=== PATIENT | female | born 1980 | race Caucasian/White ===

== ENCOUNTER 2018-02-27 16:57 | Inpatient (IN) | payer MEDICAID, OTHER ==
[~2018-02-27] VITALS: Ht 165.1 cm; Wt 71.5 kg
[2018-02-27 17:51] LABS: BASOPHILS # (AUTO) 0.03 x10^3/uL (0-0.1); BASOPHILS % (AUTO) 0 % (0-1); EOSINOPHILS # (AUTO) 0.05 x10^3/uL (0-0.4); EOSINOPHILS % (AUTO) 1 % (1-7); LYMPHOCYTES # (AUTO) 2.12 x10^3/uL (1-3.4); LYMPHOCYTES % (AUTO) 30 % (22-44); MD NO; MEAN CORPUSCULAR HEMOGLOBIN 29.9 pg (27.0-34.8); MEAN CORPUSCULAR HGB CONC 34.3 g/dL (32.4-35.8); MEAN CORPUSCULAR VOLUME 87.4 fL (80-100); MEAN PLATELET VOLUME 7.6 fL (7.4-10.4); MONOCYTES # (AUTO) 0.39 x10^3/uL (0.2-0.8); MONOCYTES % (AUTO) 5 % (2-9); NEUTROPHILS # (AUTO) 4.54 x10^3/uL (1.8-6.8); NEUTROPHILS % (AUTO) 64 % (42-75); PLATELET COUNT 271 x10^3/uL (130-400); RED CELL DISTRIBUTION WIDTH 13.6 % (9.6-15.2)
[2018-02-27 17:59] LABS: ALBUMIN 3.8 g/dL (3.4-5.0); ANION GAP 8 mmol/L (5-15); CALCIUM 8.2 mg/dL (8.5-10.1); CHLORIDE 109 mmol/L (98-107); CREATININE 0.67 mg/dL (0.55-1.02)
[2018-02-27 19:26] LABS: INTERNATIONAL NORMALIZED RATIO 2.1 (0.93-1.1); PROTHROMBIN TIME 21.6 Seconds (9.6-11.5)
[2018-02-27] MEDS ORDERED: POTASSIUM CHLORIDE 20 MEQ TAB.ER.PRT ONE (19:58)
[2018-02-27] MEDS ORDERED: POTASSIUM CHLORIDE 20 MEQ TAB.ER.PRT PO ONE (20:00)
[2018-02-27] MEDS ORDERED: POTASSIUM CHLORIDE 10% 40 MEQ/30 ML UDC PO ONE (20:00)
[2018-02-27] MEDS ORDERED: FURO20TA3 PO (20:35)
[2018-02-27] MEDS ORDERED: MACI10TA PO (20:35)
[2018-02-27] MEDS ORDERED: DIGO125T PO (20:35)
[2018-02-27] MEDS ORDERED: WARF3TAB52 PO (20:35)
[2018-02-27] MEDS ORDERED: POTA20TA14 PO (20:35)
[2018-02-27] MEDS ORDERED: TADA20TA33 PO ×2 (20:35)
[2018-02-27] MEDS ORDERED: SELE PO (20:35)
[2018-02-27 20:36] LABS: TROPONIN I < 0.015 ng/mL (0.000-0.045)
[2018-02-27] MEDS ORDERED: ASPIRIN 325 MG TABLET ONE (21:27)
[2018-02-27] MEDS ORDERED: ASPIRIN 325 MG TABLET PO ONE (21:30)
[2018-02-27 22:41] VITALS: BP 94/59
[2018-02-27] MEDS ORDERED: WARF4TAB65 PO (23:24)
[2018-02-27] MEDS ORDERED: hydrALAzine 20 MG/ML, 1ML IVPush PRN (23:30)
[2018-02-27] MEDS ORDERED: ACETAMINOPHEN 325 MG TABLET PO PRN (23:30)
[2018-02-28] MEDS ORDERED: SUMATRIPTAN 50 MG TABLET PO PRN
[2018-02-28 00:49] LABS: TROPONIN I < 0.015 ng/mL (0.000-0.045)
[2018-02-28 00:50] VITALS: BP 91/50
[2018-02-28] MEDS ORDERED: FUROSEMIDE 20 MG TABLET PO SCH (01:00)
[2018-02-28 06:25] LABS: ANION GAP 8 mmol/L (5-15); CALCIUM 7.9 mg/dL (8.5-10.1); CHLORIDE 112 mmol/L (98-107)
[2018-02-28 06:31] LABS: CREATININE 0.67 mg/dL (0.55-1.02); TROPONIN I < 0.015 ng/mL (0.000-0.045)
[2018-02-28 07:04] VITALS: BP 98/53
[2018-02-28] MEDS ORDERED: SELEXIPAG HOMEMEDPO SCH (09:00)
[2018-02-28] MEDS ORDERED: DIGOXIN 0.125 MG TABLET PO SCH (09:00)
[2018-02-28] MEDS ORDERED: TADALAFIL 20 MG HOMEMEDPO SCH (09:00)
[2018-02-28] MEDS ORDERED: MACITENTAN 10 MG HOMEMEDPO SCH (09:00)
[2018-02-28] MEDS: POTASSIUM CHLORIDE 20 MEQ TAB.ER.PRT PO SCH ×2 (10:35→16:45)
[2018-02-28] MEDS ORDERED: WARFARIN 2 MG TABLET PO-COUM SCH (18:00)
== END 2018-02-28 19:05 | disposition home or self-care (01) | DRG 103 ==
LOC: ED 19:15 → EDIP 21:18 → 4EST 22:30
PROVIDERS: ADMIT Internal Medicine; ATTEND Internal Medicine
DX: G44.40 Drug-induced headache, not elsewhere classified, not intractable (principal); D68.9 Coagulation defect, unspecified; I24.9 Acute ischemic heart disease, unspecified; I27.0 Primary pulmonary hypertension; E87.6 Hypokalemia; T45.515A Adverse effect of anticoagulants, initial encounter; T50.995A Adverse effect of other drugs, medicaments and biological substances, initial encounter; Y92.89 Other specified places as the place of occurrence of the external cause; Z90.49 Acquired absence of other specified parts of digestive tract; Z83.3 Family history of diabetes mellitus; Z87.891 Personal history of nicotine dependence; Z82.49 Family history of ischemic heart disease and other diseases of the circulatory system
CPT/HCPCS: 36415; 70450; 71045; 78452; 80048; 80162; 82040; 83735; 84484; 85025; 85610; 93005; 93017; 99285; G0378; A9502; C9898

== ENCOUNTER 2018-05-23 18:47 | Emergency (ER) | payer MEDICAID ==
[~2018-05-23] VITALS: Ht 165.1 cm; Wt 75.9 kg
[~2018-05-23 18:47] MED LIST: DIGO125T PO; FURO20TA3 PO; MACI10TA PO; POTA20TA14 PO; SELE PO; TADA20TA33 PO; WARF3TAB52 PO; WARF4TAB65 PO
[2018-05-23 19:41] LABS: BASOPHILS # (AUTO) 0.04 x10^3/uL (0-0.1); BASOPHILS % (AUTO) 1 % (0-1); EOSINOPHILS # (AUTO) 0.07 x10^3/uL (0-0.4); EOSINOPHILS % (AUTO) 1 % (1-7); LYMPHOCYTES # (AUTO) 2.21 x10^3/uL (1-3.4); LYMPHOCYTES % (AUTO) 32 % (22-44); MD NO; MEAN CORPUSCULAR HEMOGLOBIN 29.4 pg (27.0-34.8); MEAN CORPUSCULAR HGB CONC 33.9 g/dL (32.4-35.8); MEAN CORPUSCULAR VOLUME 86.8 fL (80-100); MEAN PLATELET VOLUME 7.8 fL (7.4-10.4); MONOCYTES # (AUTO) 0.46 x10^3/uL (0.2-0.8); MONOCYTES % (AUTO) 7 % (2-9); NEUTROPHILS # (AUTO) 4.09 x10^3/uL (1.8-6.8); NEUTROPHILS % (AUTO) 60 % (42-75); PLATELET COUNT 219 x10^3/uL (130-400); RED BLOOD COUNT 4.72 x10^6/uL (3.82-5.3); RED CELL DISTRIBUTION WIDTH 13.9 % (9.6-15.2)
--- NOTE | 2018-05-23 19:45 | NUR ---
PT TO ROOM FROM LOBBY
[2018-05-23 19:51] LABS: ANION GAP 4 mmol/L (5-15); CALCIUM 8.3 mg/dL (8.5-10.1); CHLORIDE 112 mmol/L (98-107)
[2018-05-23 19:57] LABS: ALANINE AMINOTRANSFERASE 20 U/L (12-78); ALKALINE PHOSPHATASE 63 U/L (45-117); BILIRUBIN,TOTAL 0.5 mg/dL (0.2-1.0); CREATININE 0.72 mg/dL (0.55-1.02); FREE T4 (FREE THYROXINE) 0.83 ng/dL (0.76-1.46); TOTAL PROTEIN 7.2 g/dL (6.4-8.2)
--- NOTE | 2018-05-23 20:35 | NUR ---
PT PRESENTS TO ED WITH C/O HEADACHES FOR OVER 3 MONTHS, ALSO "BUMPS" FELT ON SCALP X 2 MONTHS. NO RASH OR BUMPS NOTED TO SCALP. NO EGGS/INSECTS VISUALIZED ON SCALP OR IN HAIR. PT A&O, RESPS EVEN AND UNLABORED. BP AND SPO2 MONITORS IN PLACE. EDPA AT BEDSIDE FOR ASSESSMENT.
[2018-05-23 20:36] VITALS: BP 118/74
== END 2018-05-23 21:52 | disposition home or self-care (01) ==
LOC: ED 21:30
DX: L25.9 Unspecified contact dermatitis, unspecified cause (principal); Z90.49 Acquired absence of other specified parts of digestive tract
CPT/HCPCS: 36415; 80053; 80162; 84439; 84443; 84703; 85025; 99283